=== PATIENT | male | born 1955 | race Caucasian/White ===

== ENCOUNTER 2019-12-12 07:15 | Outpatient (CLI) | payer OTHER ==
[2019-12-12 13:58] LABS: #Eosinphils 0.1 thou/uL (0.0-0.7); #Lymphocytes 1.3 thou/uL (1.20-3.40); #Monocytes 0.4 thou/uL (0.11-0.59); #Neutrophils 3.1 thou/uL (1.40-6.50); %Eosinophils 1.9 % (0.0-10.0); %Lymphocytes 26.4 % (21.0-51.0); %Monocytes 8.6 % (0.0-10.0); %Neutrophils 62.1 % (42.0-75.0); Mean Corpuscular HGB CONC 32.4 g/dL (32.0-36.0); Mean Corpuscular Hemoglobin 28.4 pg (27.0-31.0); Mean Corpuscular Volume 87.6 fL (78.0-98.0); Mean Platelet Volume 7.8 fL (7.4-10.4); Platelet Count 197 thou/uL (130-400); RBC Distribution Width 13.6 % (11.5-14.5); Red Blood Cell (RBC) Count 4.93 mill/uL (4.70-6.10)
[2019-12-12 14:25] LABS: Anion Gap 16 mmol/L (10-20); BUN (Urea Nitrogen) 16 mg/dL (8.4-25.7); Calc. Creatinine Clearance 0 mL/min (70-130); Carbon Dioxide 20 mmol/L (23-31); Chloride 105 mmol/L (98-107); Estimated GFR-MDRD 82; Glucose 99 mg/dL (80-115); Potassium 3.9 mmol/L (3.5-5.1); Sodium 137 mmol/L (136-145)
[2019-12-13 11:33] LABS: SARS-CoV-2 MS2 Positive; SARS-CoV-2 N Gene Negative; SARS-CoV-2 S Gene Negative; SARS-CoV-2 orf1ab Negative
== END 2019-12-12 07:16 | disposition home or self-care (01) ==
LOC: LABBT 07:15
PROVIDERS: ATTEND Surgery
DX: Z01.812 Encounter for preprocedural laboratory examination (principal); Z11.59 Encounter for screening for other viral diseases; K40.20 Bilateral inguinal hernia, without obstruction or gangrene, not specified as recurrent
CPT/HCPCS: 80048; 85025; 87635; U0003

== ENCOUNTER 2019-12-17 09:03 | Day surgery (SDC) | payer OTHER ==
[2019-12-11 13:07] VITALS: BMI 31.7
[2019-12-17] MEDS ORDERED: Lidocaine 1% PF 5 ML VIAL ONE (11:03)
[2019-12-17] MEDS ORDERED: Glycopyrrolate 0.2 MG/ML 5 ML SYRINGE ONE (11:03)
[2019-12-17] MEDS ORDERED: PROPOFOL 200 MG/20 ML VIAL ONE (11:03)
[2019-12-17] MEDS ORDERED: Ondansetron PF 4 MG/2 ML Vial ONE (11:03)
[2019-12-17] MEDS ORDERED: PHENYLEPHRINE-NS 100 MCG/ML 10 ML SYRINGE ONE (11:03)
[2019-12-17] MEDS ORDERED: Rocuronium Bromide 10 MG/ML (10ML VIAL) ONE (11:03)
[2019-12-17] MEDS ORDERED: Dexamethasone 20 MG/5 ML VIAL ONE (11:03)
[2019-12-17] MEDS ORDERED: Lidocaine 1% w/Epinephrine 1:100K 20 ML VIAL ONE (12:41)
[2019-12-17] MEDS ORDERED: Bupivacaine 0.25% HCL 30 ML VIAL ONE (12:41)
[2019-12-17] MEDS ORDERED: Fentanyl 250 MCG/5 ML VIAL ONE (12:52)
[2019-12-17] MEDS ORDERED: Fentanyl 100 MCG/2 ML VIAL ONE ×3 (15:45→16:16)
[2019-12-17] MEDS ORDERED: HYDROcodone/Acetaminophen 5/325 mg Tablet ONE (17:20)
--- NOTE | 2019-12-17 18:57 | OP ---
DATE OF PROCEDURE: 12/17/2019 PREOPERATIVE DIAGNOSIS: Bilateral hernia. POSTOPERATIVE DIAGNOSIS: Bilateral hernia plus umbilical hernia. TECHNIQUE: 1. Da Narendra laparoscopic bilateral hernia repair with mesh, 3D max large. 2. Umbilical hernia repair with mesh, Ventralex ST small. ANESTHESIA: General. COMPLICATION: None. SPECIMEN: None. FINDINGS: Bilateral inguinal hernia. DESCRIPTION OF PROCEDURE: The patient was taken to the operating room and laid supine on the operating room table. After general anesthetic was obtained, the Summers was placed. The abdomen was shaved, prepped, and draped in a sterile fashion. A curved incision was made above the umbilicus, where he was found to have an umbilical hernia. Cautery was used to dissect down to into the abdominal cavity. An 11 mm balloon trocar was placed after pneumoperitoneum was obtained. Left and right abdominal 8 mm robotic trocars were placed. 3D max large mesh was brought into the abdomen on both sides as well as all the suture material. The patient's right-sided hernia was very large. The sigmoid colon almost in its entirely within the hernia. This made reduction difficult, however, it was ultimately reduced. Preperitoneal space was entered and bluntly dissected the pubic tubercle medially, anterior superior iliac crest laterally. Shelving edge of inguinal ligament was fully exposed. 3DMax large mesh brought in and laid in the preperitoneal space and covers the direct, indirect, and femoral areas. It was sewn via Vicryl suture to the pubic tubercle medially, to the posterior fascia laterally. The right-sided dissection and mesh were performed the same and sutured in place. Stratafix was used to reapproximate the peritoneum. All port sites were infiltrated using local anesthetic and removed under direct visualization without bleeding. Next, the umbilical stalk was amputated to expose the umbilical defect. The Ventralex ST mesh was brought in and placed into the abdominal cavity. The tails were laid out lateral and sewn via U-stitch of primary braided suture to the fascia. The fascia was then closed loosely over the mesh. The wound was irrigated. All incisions were then closed using 4-0 Monocryl and Dermabond. The patient was sent to Recovery in stable condition. All instrument counts, needle counts, and lap counts are correct. Job ID: [id number]
== END 2019-12-17 18:31 | disposition home or self-care (01) ==
LOC: SDC 09:03
PROVIDERS: ATTEND Surgery
PROC: 0WUF0JZ Supplement Abdominal Wall with Synthetic Substitute, Open Approach (ICD-10-PCS; principal; 2019-12-17)
PROC: 0YUA4JZ Supplement Bilateral Inguinal Region with Synthetic Substitute, Percutaneous Endoscopic Approach (ICD-10-PCS; principal; 2019-12-17)
DX: K40.20 Bilateral inguinal hernia, without obstruction or gangrene, not specified as recurrent (principal); K42.9 Umbilical hernia without obstruction or gangrene; I10 Essential (primary) hypertension; M19.90 Unspecified osteoarthritis, unspecified site; Z79.899 Other long term (current) drug therapy; Z91.040 Latex allergy status
CPT/HCPCS: C1781; J0690; J1100; J2001; J2405; J2704; J3010; S0020